=== PATIENT | female | born 1955 | race Caucasian/White ===

== ENCOUNTER → 2017-12-23 | Outpatient (CLI) | payer BC ==
--- NOTE | 2017-12-23 15:05 | WOMENS IMAGING REPORT ---
EXAM DESCRIPTION: BILAT SCREENING MAMMO W/CAD COMPLETED DATE/TIME: 12/23/2017 2:49 pm REASON FOR STUDY: ROUTINE SCREENING MAMMOGRAM Z12.31 Z12.31 ENCNTR SCREEN MAMMOGRAM FOR MALIGNANT N EOPLASM OF LEXI COMPARISON: 2013 TECHNIQUE: Standard craniocaudal and mediolateral oblique views of each breast recorded using [employer] Word[employer] l acquisition. LIMITATIONS: None. FINDINGS: No masses, calcifications or architectural distortion. No areas of suspicion. Read with the assistance of CAD. .[facility] - R2 Cenova Version 1.3 .[facility] - R2 Cenova Version 1.3 .[facility] - R2 Cenova Version 2.4 .[facility] - R2 Cenova Version 2.4 .[facility] - R2 Stull Hewer Version 9.2 IMPRESSION: NORMAL MAMMOGRAM. BIRADS 1. BREAST DENSITY: b. There are scattered areas of fibroglandular density. BIRAD: 1 NEGATIVE RECOMMENDATION: ROUTINE SCREENING Please continue yearly bilateral screening mammography/tomosynthesis in November 2018 COMMENT: The patient has been notified of the results by letter per SA requirements. Additional no tification policies are in place for contacting patient with suspicious or incomplete findings. Quality ID #225: The [employer] recommends an annual screening mammogram for women aged 40 years or over. This facility utilizes a reminder system to ensure that all patients receive reminder letters, and/or direct phone calls for appointments. This includes reminders for routine scr eening mammograms, diagnostic mammograms, or other Breast Imaging Interventions when appropriate. Th is patient will be placed in the appropriate reminder system. The [employer] (ACR) has developed recommendations for screening MRI of the breast s in certain patient populations, to be used in conjunction with mammography. Breast MRI surveillanc e may be appropriate for women with more than 20% lifetime risk of developing breast cancer as deter mined by genetic testing, significant family history of the disease, or history of mantle radiation f or Hodgkins Disease. ACR Practice Guidelines 2008. TECHNICAL DOCUMENTATION: FINDING NUMBER: (1) ASSESSMENT: (1) JOB ID: [id number] [employer]- All Rights Reserved Reading location - IP/workstation name: [email or web address]
== END ==
LOC: WI 14:11
PROVIDERS: ATTEND Physician Assistant
DX: Z12.31 Encounter for screening mammogram for malignant neoplasm of breast (principal)
CPT/HCPCS: 77067

== ENCOUNTER 2019-04-14 12:07 | Inpatient (IN) | payer SELFPAY ==
--- NOTE | 2019-04-14 13:09 | ER Document Report ---
ED Medical Screen (RME) - General Chief Complaint: Numbness Stated Complaint: NUMBNESS Time Seen by Provider: 04/14/19 12:58 Primary Care Provider: JULIANE JOHNSON PA-C [Primary Care Provider] - Follow up as needed TRAVEL OUTSIDE OF THE U.S. IN LAST 30 DAYS: No - HPI Notes: 04/14/19 13:03 Patient is a 64-year-old female no significant past medical history presents complaining of left arm and left leg tingling and weakness as well as bilateral face tingling that began between 8 and 830 this morning. Patient states that she is still able to eat and drink without difficulty. She is urinating normally. No fever, chest pain, shortness of breath, abdominal pain. Patient is outside the tpa window >4.5-5 hours. I have treated and performed a rapid initial assessment of this patient. A comprehensive ED assessment and evaluation of the patient, analysis of test results and completion of medical decision making process will be conducted by additional ED providers. PHYSICAL EXAMINATION: GENERAL: Well-appearing, well-nourished and in no acute distress. A&Ox4. Answers questions appropriately. Neuro: Face is symmetric, PERRLA, EOMI bilaterally. Pronator drift negative. [id number] within normal limits. There is subjective decrease in station left side of the body and bilateral face. Strength 4+/5 on the left side and 5+/5 on the right side. - Related Data Allergies/Adverse Reactions: codeine Allergy (Verified 04/14/19 12:56) Physical Exam - Vital signs Vitals: Temp Pulse Resp BP Pulse Ox 98.4 F 80 18 125/61 95 04/14/19 12:04/14/19 12:04/14/19 12:04/14/19 12:04/14/19 12:19 Course - Vital Signs Vital signs: Temp Pulse Resp BP Pulse Ox 98.4 F 80 18 125/61 95 04/14/19 12:04/14/19 12:04/14/19 12:04/14/19 12:04/14/19 12:19 Doctor's Discharge - Discharge Referrals: JULIANE JOHNSON PA-C [Primary Care Provider] - Follow up as needed
[2019-04-14 13:58] LABS: ABSOLUTE BASOPHILS # (AUTO) 0.1 10^3/uL (0.0-0.2); ABSOLUTE EOSINOPHILS # (AUTO) 0.2 10^3/uL (0.0-0.6); ABSOLUTE LYMPHOCYTES (AUTO) 2.8 10^3/uL (0.5-4.7); ABSOLUTE MONOCYTES (AUTO) 1.1 10^3/uL (0.1-1.4); ABSOLUTE NEUT (AUTO) 5.7 10^3/uL (1.7-8.2); BASOPHILS % (AUTO) 0.8 % (0-2); EOSINOPHILS % (AUTO) 1.6 % (0-6); HEMATOCRIT 44.4 % (36.0-47.0); LYMPHOCYTES % (AUTO) 28.3 % (13-45); MEAN CORPUSCULAR HEMOGLOBIN 31.7 pg (27.0-33.4); MEAN CORPUSCULAR HGB CONC 33.7 g/dL (32.0-36.0); MEAN CORPUSCULAR VOLUME 94 fl (80-97); MONOCYTES % (AUTO) 11.6 % (3-13); PLATELET COUNT 190 10^3/uL (150-450); RED BLOOD COUNT 4.73 10^6/uL (3.72-5.28); RED CELL DISTRIBUTION WIDTH 15.3 % (11.5-14.0); SEGMENTED NEUTROPHILS % (AUTO) 57.7 % (42-78); TOTAL CELLS COUNTED % (AUTO) 100 %; WHITE BLOOD COUNT 9.9 10^3/uL (4.0-10.5)
--- NOTE | 2019-04-14 14:08 | RADIOLOGY REPORT (SQ) ---
EXAM DESCRIPTION: CT HEAD WITHOUT COMPLETED DATE/TIME: 04/14/2019 1:51 pm REASON FOR STUDY: left arm/leg weakness/tingling, bilateral face COMPARISON: None. TECHNIQUE: Axial images acquired through the brain without intravenous contrast. Images reviewed wi th bone, brain and subdural windows. Additional sagittal and coronal reconstructions were generated. Images stored on PACS. All CT scanners at this facility use dose modulation, iterative reconstruction, and/or weight based d osing when appropriate to reduce radiation dose to as low as reasonably achievable (ALARA). [facility]: Dose Right [facility]: CareDose [facility]: Dose Right [facility]: Teradose 4D [facility]: OjoOido-Academics RADIATION DOSE: CT Rad equipment meets quality standard of care and radiation dose reduction techniq ues were employed. CTDIvol: 53.2 mGy. DLP: 964 mGy-cm. LIMITATIONS: None. FINDINGS: There is no acute intracranial hemorrhage, vascular territorial infarct, extra-axial fluid collection, mass effect or midline shift. There is no effacement of the cerebral sulci or basal sub arachnoid cisterns. The sanchez-white matter differentiation is preserved. The caliber the ventricles is concordant with the degree of sulcation. The orbits and globes are intact. The paranasal sinuses and the mastoid air cells are clear. There is no fracture of the calvarium. IMPRESSION: No acute intracranial abnormality. If there is persistent concern for an acute CVA then correlation with MRI is recommended. EVIDENCE OF ACUTE STROKE: NO. COMMENT: Quality ID # [id number]: Final reports with documentation of one or more dose reduction techniques (e.g., Automated exposure control, adjustment of the mA and/or kV according to patient size, use of iterative reconstruction technique) TECHNICAL DOCUMENTATION: JOB ID: [id number] 2010 [employer]- All Rights Reserved Reading location - IP/workstation name: [email or web address]
[2019-04-14 14:11] LABS: APPEARANCE,URINE CLEAR; BILIRUBIN,URINE NEGATIVE (NEGATIVE); COLOR,URINE YELLOW; GLUCOSE, URINE NEGATIVE (NEGATIVE); KETONES,URINE NEGATIVE (NEGATIVE); PROTEIN,URINE NEGATIVE (NEGATIVE); URINE SPECIFIC GRAVITY 1.014; UROBILINOGEN,URINE NEGATIVE mg/dL (<2.0)
[2019-04-14 14:16] LABS: INTERNATIONAL RATION (INR) 0.94; PROTHROMBIN TIME 12.6 SEC (11.4-15.4)
[2019-04-14 14:17] LABS: PARTIAL THROMBOPLASTIN TIME 30.1 SEC (23.5-35.8)
[2019-04-14 14:24] LABS: ALBUMIN 4.4 g/dL (3.5-5.0); ALKALINE PHOSPHATASE 81 U/L (38-126); ANION GAP 9 (5-19); ASPARTATE AMINO TRANSFERASE 18 U/L (14-36); BILIRUBIN,DIRECT 0.3 mg/dL (0.0-0.4); BILIRUBIN,TOTAL 0.4 mg/dL (0.2-1.3); BLOOD UREA NITROGEN 20 mg/dL (7-20); CALCIUM 9.3 mg/dL (8.4-10.2); CARBON DIOXIDE 28 mmol/L (22-30); CHLORIDE 102 mmol/L (98-107); GLUCOSE 75 mg/dL (75-110); POTASSIUM 4.6 mmol/L (3.6-5.0); TOTAL PROTEIN 7.8 g/dL (6.3-8.2)
--- NOTE | 2019-04-14 16:11 | ER Document Report ---
ED General - General Chief Complaint: Numbness Stated Complaint: NUMBNESS Time Seen by Provider: 04/14/19 12:58 Primary Care Provider: JULIANE JOHNSON PA-C [Primary Care Provider] - Follow up as needed TRAVEL OUTSIDE OF THE U.S. IN LAST 30 DAYS: No - HPI Notes: 64-year-old female with no prior history of stroke or TIA reports that she was well when she went to bed last night and when she awakened this morning around 8 AM she was aware of some tingling of both sides of her face and some mild weakness of her left upper and lower extremity. She is able to stand and walk but notices some slight dragging of her left leg. Patient has a past history of migraine. She denies any headache nausea or vomiting at this time. She denies any visual symptoms or any problems with swallowing or speaking. Patient is a non-smoker. She denies any known history of diabetes or hypertensi on. Family history is strongly positive for CVA. Patient sees a primary care provider in [place], [place] and has been treated for depression and anxiety. Her regular medications include Xanax 1 mg twice daily Paxil 30 mg at bedtime and Deseryl. No other regular medications. Allergic to codeine. Denies any history of drug use. Denies alcohol consumption. - Related Data Allergies/Adverse Reactions: codeine Allergy (Verified 04/14/19 12:56) Past Medical History - General Information source: Patient, Relative - Social History Smoking Status: Former Smoker Frequency of alcohol use: None Drug Abuse: None Lives with: Family Family History: CVA Patient has suicidal ideation: No Patient has homicidal ideation: No - Past Medical History Cardiac Medical History: Reports: None Neurological Medical History: Reports: Hx Migraine Endocrine Medical History: Reports: None Renal/ Medical History: Reports: Other - Postmenopausal Malignancy Medical History: Reports: None Musculoskeletal Medical History: Reports Hx Arthritis Psychiatric Medical History: Reports: Hx Anxiety, Hx Depression Past Surgical History: Reports: None Review of Systems - Review of Systems Notes: Constitutional: Negative for fever. HENT: Negative for sore throat. Eyes: Negative for visual changes. Cardiovascular: Negative for chest pain. Respiratory: Negative for shortness of breath. Gastrointestinal: Negative for abdominal pain, vomiting or diarrhea. Genitourinary: Light vaginal spotting last week. Negative for dysuria. Musculoskeletal: Negative for back pain. Skin: Negative for rash. Neurological: As per HPI. 10 point ROS negative except as marked above and in HPI. Physical Exam - Vital signs Vitals: Temp Pulse Resp BP Pulse Ox 98.4 F 80 18 125/61 95 04/14/19 12:19 04/14/19 12:19 04/14/19 12:19 04/14/19 12:19 04/14/19 12:19 - Notes Notes: GENERAL: Female patient approximately stated age appearing in no acute distress. SKIN: Good turgor no rashes. HEAD: Normocephalic atraumatic. EYES: PERRLA. EOMI. Conjunctivae and sclerae clear. EARS: CANALS AND TMS CLEAR. NOSE: CLEAR. MOUTH: Moist mucosa. Good dentition. No stridor or edema. No drooling. NECK: Supple. No masses or thyromegaly. No adenopathy. Carotids 2+ without bruits. No JVD. Throat: Clear. BACK: Symmetrical without tenderness. CHEST: Respirations unlabored. Breath sounds clear and symmetrical. HEART: Regular rhythm. No murmur gallop or rub. ABDOMEN: Soft nontender without masses, organomegaly or rebound. Bowel sounds normally active. No bruits. GENITALIA: Deferred. EXTREMITIES: Mild degenerative changes in phalangeal joints both hands. No edema. No calf tenderness. Cap refill less than 1.5 seconds. Dorsalis pedis and posterior tibial pulses 3+ and symmetrical. NEUROLOGICAL: GCS 15. Alert and oriented x3. Minimally unsteady gait with mild dragging of left lower extremity. Fluent speech. Cranial nerves II through XII intact. Mild diminished sensation over both sides of the face. Minimal motor drift left lower extremity with all motor testing elsewhere normal. Finger-nose testing normal. Normal tone. PSYCHIATRIC: Appropriate affect. Course - Re-evaluation Re-evalutation: 04/14/19 16:15 Clinically this patient may have had a small CVA. She is outside of the window for consideration of patient does not meet any exclusion criteria for TPA at this time. I have reviewed the risks and benefits of administration of TPA with the family at the bedside. We have reviewed the risks of intracranial bleed and the possible benefits of increased functional independence at 90 days with the use of TPA. At her deficit is very minimal. We will obtain an MRI of the brain at this time. 04/14/19 18:04 Patient remains hemodynamically stable. Symptoms and findings are unchanged at this point. MRI the brain showed a 6 mm infarct. The right thalamus. I discussed these findings with the patient. We have no local neurologist. I will consult with the on-call stroke attending at [facility] Dr. Mckeon. Images have been sent to [facility] and I am waiting for return call from the neurologist at this time. 04/14/19 18:49 Stroke automotive internet sales consultant [facility] has accepted the patient for transfer. We will administer oral aspirin and Plavix per his recommendation pending transfer. EMTALA form completed. 04/14/19 18:49 04/14/19 19:20 I received further communication from stroke neurology team at [facility]. They do not currently have a neuro bed available for this patient. Cubing Machine Tender feels th at she needs no specific neurology intervention at this time but will need a vascular work-up. He recommends local admission. Case was discussed with on- call hospitalist Dr. Austin Lima who has agreed to admit here. I discussed this with the patient and her family and they are agreeable. - Vital Signs Vital signs: Temp Pulse Resp BP Pulse Ox 98.4 F 80 18 125/61 95 04/14/19 12:19 04/14/19 12:19 04/14/19 12:19 04/14/19 12:19 04/14/19 12:19 - Laboratory Result Diagrams: 04/14/19 12:47 04/14/19 12:47 Laboratory results interpreted by me: 04/14/19 04/14/19 04/14/19 12:47 12:47 12:47 RDW 15.3 H Magnesium 2.4 H Urine Blood SMALL H Leukocyte Esterase Rfl TRACE H - Diagnostic Test Radiology reviewed: Reports reviewed Radiology results interpreted by me: 04/14/19 16:[address] head per radiologist. 04/14/19 18:04 MRI of the brain with 6 mm infarction right thalamus per radiologist. - EKG Interpretation by Me Additional EKG results interpreted by me: 04/14/19 16:14 12-lead EKG from 1336 hrs. is reviewed contemporaneously by me demonstrating normal sinus rhythm with rate of 62 normal axis of [address] no acute [address]-T wave changes or alteration of intervals. Discharge - Discharge Clinical Impression: Acute ischemic stroke Condition: Fair Disposition: [facility] Referrals: JULIANE JOHNSON PA-C [Primary Care Provider] - Follow up as needed
--- NOTE | 2019-04-14 17:18 | RADIOLOGY REPORT (SQ) ---
EXAM DESCRIPTION: MRI HEAD COMBO COMPLETED DATE/TIME: 04/14/2019 5:02 pm REASON FOR STUDY: Left side weakness >[address] normal COMPARISON: Earlier CT TECHNIQUE: Multiplanar imaging includes noncontrasted T1, T2, FLAIR, and Diffusion with ADC map seq uences. Contrast enhanced T1 images. Images stored on PACS. CONTRAST TYPE AND DOSE: 10 mL Dotarem. RENAL FUNCTION: GFR > 60. LIMITATIONS: None. FINDINGS: ANATOMY: No anomalies. Normal vascular flow voids. Pituitary fossa normal. CSF SPACES: Normal size and contour. No hemorrhage. CEREBRUM: A few high-signal intensity lesions scattered throughout the white matter on FLAIR imaging with distribution suggesting chronic microvascular ischemic change. Sulci and gyri normal in size and contour. No evidence of hemorrhage, mass or extraaxial fluid collection. No enhancing lesions. POSTERIOR FOSSA: No signal alteration. No hemorrhage. No edema, masses or mass effect. Internal audit ory canals, cerebello-pontine angles, mastoids normal. ORBITS: No masses. Globes normal. PARANASAL SINUSES: No fluid levels. Mucosa normal. OTHER: No other significant finding. DIFFUSION: Positive for acute or sub-acute infarction in a 6 mm focus in the lateral aspect of the ri ght thalamus. IMPRESSION: Positive for acute or sub-acute infarction in a 6 mm focus in the lateral aspect of the right thalamus. NO ENHANCING LESIONS. EVIDENCE OF ACUTE STROKE: YES. RIGHT SUPERVISOR LIVESTOCK YARD. COMMENT: The findings were sent to the Radiology Results Communication Center at 17:11 on 04/14/2019 to be communicated to a licensed caregiver. TECHNICAL DOCUMENTATION: JOB ID: [id number] 2010 [employer]- All Rights Reserved Reading location - IP/workstation name: [employer]
[2019-04-14] MEDS ORDERED: ASPIRIN 81 MG TABLET, CHEWABLE PO ONE (18:48)
[2019-04-14] MEDS ORDERED: CLOPIDOGREL BISULFATE 300 MG TABLET PO ONE (18:48)
[2019-04-14] MEDS ORDERED: DOCUSATE SODIUM 100 MG CAPSULE PO PRN (19:34)
[2019-04-14] MEDS ORDERED: ACETAMINOPHEN 325 MG TABLET PO PRN (19:34)
--- NOTE | 2019-04-14 20:06 | EKG REPORT ---
SEVERITY:- NORMAL ECG - SINUS RHYTHM : Confirmed by: Nelson Del Rosario MD 14-Apr-2019 20:05:47
[2019-04-14] MEDS: HEPARIN SOD (PORCINE) 5,000 UNIT/ML 1 ML VIAL SUBCUT SCH (22:54)
[2019-04-14] MEDS: ATORVASTATIN CALCIUM 80 MG TABLET PO SCH (22:54)
[2019-04-15] MEDS ORDERED: ALPRAZOLAM 0.5 MG TABLET PO ONE (01:15)
[2019-04-15] MEDS ORDERED: TRAZODONE HCL 50 MG TABLET PO ONE (02:00)
--- NOTE | 2019-04-15 04:00 | PDOC H&P ---
History of Present Illness Admission Date/PCP: 04/14/19 19:55 JULIANE JOHNSON PA-C Patient complains of: Facial numbness and tingling, left hand and left leg weakness History of Present Illness: LISA WOODS is a 64 year old female with a past medical history of anxiety, depression, hypertension and dyslipidemia presents with 8 hours of facial numbness and left-sided weakness. She denies previous episode, palpitations, recent change in medication regiment. In the emergency department her symptoms remain but are somewhat improved. MRI reveals 6 mm right thalamic acute infarct. She started on aspirin, Plavix and referred to the hospitalist for admission. Patient admits to approximately 1 year of left lower quadrant pain and vaginal bleeding without evaluation. Past Medical History Cardiac Medical History: Reports: None Neurological Medical History: Reports: Migraine Endocrine Medical History: Reports: None Renal/ Medical History: Reports: Other - Postmenopausal Malignancy Medical History: Reports: None Musculoskeltal Medical History: Reports: Arthritis Psychiatric Medical History: Reports: Depression, General Anxiety Disorder Past Surgical History Past Surgical History: Reports: None Social History Information Source: Patient Lives with: Family Smoking Status: Former Smoker Cigarettes Packs Per Day: 1 Electronic Cigarette use?: No Number of Years Smokin Last Time Smoked: 1989 Frequency of Alcohol Use: Rare Hx Recreational Drug Use: No Drugs: None Hx Prescription Drug Abuse: No - Advance Directive Resuscitation Status: Full Code Family History Family History: CVA Parental Family History Reviewed: Yes Children Family History Reviewed: Yes Sibling(s) Family History Reviewed.: Yes Medication/Allergy Home Medications: Alprazolam 1 mg PO Q12 04/14/19 Calcium Carbonate [Caltrate 600 mg Tablet] 600 mg PO DAILY 04/14/19 Cholecalciferol (Vitamin D3) [Vitamin D3 1000 Unit Tablet] 1,000 unit PO DAILY 04/14/19 Garlic [Odor Free Garlic] 1 each PO DAILY 04/14/19 Multivit-Min/Iron/Folic/Lutein [Centrum Silver Women Tablet] 1 each PO DAILY 04/14/19 [place]-3/Dha/Epa/Fish Oil [Fish Oil 1,000 mg Softgel] 1,000 mg PO DAILY 04/14/19 Paroxetine HCl [Paxil] 30 mg PO DAILY 04/14/19 Trazodone HCl [Desyrel 50 mg Tablet] 50 mg PO QHS 04/14/19 Allergies/Adverse Reactions: codeine Allergy (Verified 04/14/19 12:56) Review of Systems Constitutional: PRESENT: as per HPI, other - Heat intolerance. ABSENT: chills, fever(s), headache(s), weight gain, weight loss Eyes: ABSENT: visual disturbances Ears: ABSENT: hearing changes Cardiovascular: ABSENT: chest pain, dyspnea on exertion, edema, orthropnea, palpitations Respiratory: ABSENT: cough, hemoptysis Gastrointestinal: ABSENT: abdominal pain, constipation, diarrhea, hematemesis, hematochezia, nausea, vomiting Genitourinary: PRESENT: other - Vaginal bleeding. ABSENT: dysuria, hematuria Musculoskeletal: ABSENT: joint swelling Integumentary: ABSENT: rash, wounds Neurological: ABSENT: abnormal gait, abnormal speech, confusion, dizziness, focal weakness, syncope Psychiatric: ABSENT: anxiety, depression, homidical ideation, suicidal ideation Endocrine: PRESENT: heat intolerance. ABSENT: cold intolerance, polydipsia, polyuria Hematologic/Lymphatic: ABSENT: easy bleeding, easy bruising Physical Exam Vital Signs: Temp Pulse Resp BP Pulse Ox 98.4 F 60 17 133/53 H 95 04/15/19 00:08 04/15/19 02:00 04/15/19 00:08 04/15/19 00:08 04/15/19 00:08 Intake & Output 04/13/19 04/14/19 04/15/19 11:59 11:59 11:59 Output Total 150 Balance -150 Weight 68 kg General appearance: PRESENT: cooperative, mild distress, well-developed, well- nourished Head exam: PRESENT: atraumatic, normocephalic Eye exam: PRESENT: conjunctiva pink, EOMI, PERRLA. ABSENT: scleral icterus Ear exam: PRESENT: normal external ear exam Mouth exam: PRESENT: moist, tongue midline Neck exam: ABSENT: carotid bruit, JVD, lymphadenopathy, thyromegaly Respiratory exam: PRESENT: clear to auscultation chavez. ABSENT: rales, rhonchi, wheezes Cardiovascular exam: PRESENT: RRR. ABSENT: diastolic murmur, rubs, systolic murmur Pulses: PRESENT: normal dorsalis pedis pul Vascular exam: PRESENT: normal capillary refill GI/Abdominal exam: PRESENT: normal bowel sounds, soft, tenderness - Left lower quadrant versus pelvic, tenderness. ABSENT: distended, guarding, mass, organolmegaly, rebound Rectal exam: PRESENT: deferred Extremities exam: PRESENT: full ROM. ABSENT: calf tenderness, clubbing, pedal edema Musculoskeletal exam: PRESENT: full ROM, other - 4+ out of 5 strength in the left upper and lower extremity.. ABSENT: tenderness Neurological exam: PRESENT: alert, awake, oriented to person, oriented to place, oriented to time, oriented to situation, CN II-XII grossly intact. ABSENT: motor sensory deficit Psychiatric exam: PRESENT: appropriate affect, normal mood. ABSENT: homicidal ideation, suicidal ideation Skin exam: PRESENT: dry, intact, warm. ABSENT: cyanosis, rash Results Laboratory Results: 04/14/19 12:47 04/14/19 12:47 04/14/19 04/14/19 04/14/19 12:47 12:47 12:47 WBC 9.9 RBC 4.73 Hgb 15.0 Hct 44.4 MCV 94 MCH 31.7 MCHC 33.7 RDW 15.3 H Plt Count 190 Seg Neutrophils % 57.7 Sodium 139.0 Potassium 4.6 Chloride 102 Carbon Dioxide 28 Anion Gap 9 BUN 20 Creatinine 0.78 Est GFR ( Amer) > 60 Glucose 75 Calcium 9.3 Magnesium 2.4 H Total Bilirubin 0.4 AST 18 Alkaline Phosphatase 81 Total Protein 7.8 Albumin 4.4 TSH 1.07 Urine Color Urine Appearance Urine pH Ur Specific [place] Urine Protein Urine Glucose (UA) Urine Ketones Urine Blood Urine RBC (Auto) 04/14/19 04/15/19 12:47 00:52 WBC RBC Hgb Hct MCV MCH MCHC RDW Plt Count Seg Neutrophils % Sodium Potassium Chloride Carbon Dioxide Anion Gap BUN Creatinine Est GFR ( Amer) Glucose Calcium Magnesium Total Bilirubin AST Alkaline Phosphatase Total Protein Albumin TSH 2.64 Urine Color YELLOW Urine Appearance CLEAR Urine pH 6.0 Ur Specific [place] 1.014 Urine Protein NEGATIVE Urine Glucose (UA) NEGATIVE Urine Ketones NEGATIVE Urine Blood SMALL H Urine RBC (Auto) 5 Impressions: Head CT 04/14/19 13:02 IMPRESSION: No acute intracranial abnormality. If there is persistent concern for an acute CVA then correlation with MRI is recommended. EVIDENCE OF ACUTE STROKE: NO. Head MRI 04/14/19 16:00 IMPRESSION: Positive for acute or sub-acute infarction in a 6 mm focus in the lateral aspect of the right thalamus. NO ENHANCING LESIONS. EVIDENCE OF ACUTE STROKE: YES. RIGHT BINGO CALLER. Assessment and Plan - Diagnosis (1) Acute ischemic stroke Is this a current diagnosis for this admission?: Yes Plan: CVA care set deployed, aspirin, Plavix, Lipitor, permissive hypertension, evaluate risks of CVA as below, physical and Occupational Therapy consulted. (2) Hypertension Is this a current diagnosis for this admission?: Yes Plan: 48 hours of permissive hypertension (3) Dyslipidemia Is this a current diagnosis for this admission?: Yes Plan: Empiric Lipitor initiated, follow-up lipid profile (4) Heat intolerance Is this a current diagnosis for this admission?: Yes Plan: Follow-up TSH and pelvic CT (5) Vaginal bleeding Is this a current diagnosis for this admission?: Yes Plan: Follow-up pelvic CT, consider DISTRICT SUPERVISOR consult (6) Left lower quadrant pain Is this a current diagnosis for this admission?: Yes Plan: Denies colonoscopy, investigating hypercoagulable state of malignancy. - Time Time Spent with patient: 25-34 minutes - Inpatient Certification Medical Necessity: Need Close Monitoring Due to Risk of Patient Decompensation
--- NOTE | 2019-04-15 04:41 | RADIOLOGY REPORT (SQ) ---
EXAM DESCRIPTION: CT ABDOMEN PELVIS WITH IV CONTRAST COMPLETED DATE/TME: 04/15/2019 00:00 CLINICAL HISTORY: 64 years, Female, weight loss, LLQ pain and dysfnx uterine bleed COMPARISON: None. TECHNIQUE: Images stored on PACS. All CT scanners at this facility use dose modulation, iterative reconstruction, and/or weight based dosing when appropriate to reduce radiation dose to as low as reasonably achievable (ALARA). [facility]: Dose Right [facility]: CareDose [facility]: Dose Right [facility]: Teradose 4D [facility]: [employer] LIMITATIONS: None. FINDINGS: Lung bases are clear. The heart is top normal. No pleural or pericardial fluid. The liver is mildly fatty infiltrated. It is homogeneous. The gallbladder surgically absent. The pancreas appears normal. The spleen adrenals and kidneys are unremarkable. Extrarenal pelvis of both kidneys. The bowel is nonobstructed. No focal inflammatory change. Diverticulosis of the colon distally without acute diverticulitis. The appendix is normal. No free air. No free fluid. Pelvic contents are unremarkable. The visualized bones are unremarkable. Age-appropriate osteoarthritis IMPRESSION: No acute intra-abdominal process is identified. Diverticulosis without acute diverticulitis. The cause of the patient's left lower quadrant pain and dysfunctional uterine bleeding is not identified on this examination. TECHNICAL DOCUMENTATION: Quality ID # 436: Final reports with documentation of one or more dose reduction techniques (e.g., Automated exposure control, adjustment of the mA and/or kV according to patient size, use of iterative reconstruction technique) copyright 2011 [employer]- All Rights Reserved
[2019-04-15] MEDS: HEPARIN SOD (PORCINE) 5,000 UNIT/ML 1 ML VIAL SUBCUT SCH ×3 (05:54→21:34)
[2019-04-15 06:27] LABS: TRIGLYCERIDES 85 mg/dL (<150)
[2019-04-15 06:38] LABS: DIRECT LDL 148 mg/dL (<100)
--- NOTE | 2019-04-15 08:07 | RADIOLOGY REPORT (SQ) ---
EXAM DESCRIPTION: CAROTID DOPPLER COMPLETED DATE/TIME: 04/14/2019 9:23 pm REASON FOR STUDY: R thal cva c left leg weak COMPARISON: None. TECHNIQUE: Grayscale ultrasound, Doppler velocity and spectra, and color Doppler images acquired of the extra-cranial carotid and vertebral arteries. Images stored on PACS. LIMITATIONS: None. FINDINGS: RIGHT CAROTID CCA Velocities: Within normal limits. ICA Velocities Within normal limits. Proximal ICA/CCA peak systolic ratio 1.2. Mild soft plaque. No significant luminal compromise. LEFT CAROTID CCA Velocities: Within normal limits. ICA Velocities Within normal limits. Proximal ICA/CCA peak systolic ratio 1.1. Mild soft plaque. No significant luminal compromise. VERTEBRAL ARTERIES: Antegrade flow. Normal waveforms. SUBCLAVIAN ARTERIES: No finding. OTHER: No other significant finding. IMPRESSION: NO HEMODYNAMICALLY SIGNIFICANT STENOSIS. COMMENT: Quality ID #195: Velocity criteria are extrapolated from the diameter data as defined by t he Society of Radiologists in Ultrasound Consensus Conference. Radiology 2003: 229; 340-346. TECHNICAL DOCUMENTATION: JOB ID: [id number] 2010 [employer]- All Rights Reserved Reading location - IP/workstation name: [email or web address]
[2019-04-15] MEDS: ALPRAZOLAM 0.5 MG TABLET PO SCH ×2 (09:19→21:33)
[2019-04-15] MEDS: ASPIRIN 81 MG TABLET, ENT COATED PO SCH (09:19)
[2019-04-15] MEDS ORDERED: PAROXETINE HCL 20 MG TABLET PO SCH ×2 (10:00→22:00)
--- NOTE | 2019-04-15 15:47 | PDOC PROGRESS REPORT ---
Subjective Progress Note for:: 04/15/19 Subjective:: Patient states that she still has some weakness in her left side involving her left arm and left leg and a blue bit of tingling in her left face but states that the symptoms are much improved and the weakness is better. Denies history of hypertension or atrial fibrillation. States that her symptoms started around 8:00 yesterday morning. Reason For Visit: CVA Physical Exam Vital Signs: Temp Pulse Resp BP Pulse Ox 98.6 F 69 18 124/78 98 04/15/19 11:27 04/15/19 11:27 04/15/19 11:27 04/15/19 11:27 04/15/19 11:27 Intake & Output 04/14/19 04/15/19 04/16/19 06:59 06:59 06:59 Intake Total 240 Output Total 150 Balance -150 240 Weight 63.8 kg General appearance: PRESENT: no acute distress, cooperative Head exam: PRESENT: normocephalic Eye exam: PRESENT: EOMI, other - Left pupil is more enlarged compared to right pupil slightly. ABSENT: nystagmus Mouth exam: PRESENT: neck supple Neck exam: ABSENT: JVD Respiratory exam: PRESENT: clear to auscultation chavez Cardiovascular exam: PRESENT: RRR, +S1, +S2. ABSENT: tachycardia GI/Abdominal exam: PRESENT: soft. ABSENT: rebound, rigid, tenderness Neurological exam: PRESENT: alert, awake, oriented to person, oriented to place, oriented to time, oriented to situation, motor sensory deficit - 4/5 in left upper and lower extremities. 5/5 in right side. Mild left arm and left leg drift but does not touch bed. Sensation to light touch and pain intact in all extremities. No evidence of extinction, other - Cranial nerves are normal with the exception of mild left-sided facial droop and anisocoria with left pupil larger than the right. ABSENT: altered, ataxia - No evidence of ataxia on efzlix-jlme-gfwphj testing nor on rapid alternating hand movements. Fcsl-oh-somo testing is limited due to left-sided weakness, aphasic Psychiatric exam: ABSENT: agitated, anxious Focused psych exam: ABSENT: pressured speech Results Laboratory Results: 04/14/19 12:47 04/14/19 12:47 04/15/19 04/15/19 00:52 05:57 Triglycerides 85 Cholesterol 218.80 H LDL Cholesterol Direct 148 H VLDL Cholesterol 17.0 HDL Cholesterol 48 TSH 2.64 Impressions: Head CT 04/14/19 13:02 IMPRESSION: No acute intracranial abnormality. If there is persistent concern for an acute CVA then correlation with MRI is recommended. EVIDENCE OF ACUTE STROKE: NO. Head MRI 04/14/19 16:00 IMPRESSION: Positive for acute or sub-acute infarction in a 6 mm focus in the lateral aspect of the right thalamus. NO ENHANCING LESIONS. EVIDENCE OF ACUTE STROKE: YES. RIGHT DIRECTOR CLOUD TRANSFORMATION. Carotid Doppler Study 04/14/19 19:34 IMPRESSION: NO HEMODYNAMICALLY SIGNIFICANT STENOSIS. Abdomen/Pelvis CT 04/15/19 00:00 IMPRESSION: No acute intra-abdominal process is identified. Diverticulosis without acute diverticulitis. The cause of the patient's left lower quadrant pain and dysfunctional uterine bleeding is not identified on this examination. TECHNICAL DOCUMENTATION: Quality ID # 436: Final reports with documentation of one or more dose reduction techniques (e.g., Automated exposure control, adjustment of the mA and/or kV according to patient size, use of iterative reconstruction technique) copyright 2011 [employer]- All Rights Reserved Assessment and Plan - Diagnosis (1) Acute ischemic stroke Is this a current diagnosis for this admission?: Yes Plan: NIH S score of 3-4 today on my assessment. Patient is over 24 hours in stroke and as such bedrest and permissive hypertension can be discontinued at this point. Aspirin and atorvastatin Telemetry reviewed by me and no evidence of A. fib or any other arrhythmias Carotid ultrasound showing no significant stenosis MRI confirms 6 mm right thalamic stroke which is likely responsible for left- sided weakness and her mild left facial droop and anisocoria Continue physical therapy Discharge planning consulted for acute rehab Patient has passed bedside swallow evaluation by nursing and is currently on amiodarone. (2) Dyslipidemia Is this a current diagnosis for this admission?: Yes Plan: Lipitor (3) Hypertension Is this a current diagnosis for this admission?: Yes Plan: Patient denies having hypertension at this time. I will monitor patient's blood pressures start patient on antihypertensive if patient blood pressure still elevated (4) Vaginal bleeding Is this a current diagnosis for this admission?: Yes Plan: Patient has been experiencing some vaginal bleeding. Abdominal pelvis CT scan was negative for any findings. Check pelvic ultrasound Patient will ultimately need endometrial biopsy which will be done in the outpatient setting. - Time Time Spent with patient: 15-24 minutes
--- NOTE | 2019-04-15 18:27 | RADIOLOGY REPORT (SQ) ---
EXAM DESCRIPTION: U/S NON OB PEL TV W/DOPPLER; U/S NON-OB PELVIS W/O DOP COMPLETED DATE/TIME: 04/15/2019 5:58 pm REASON FOR STUDY: vaginal bleeding. postmenopausal COMPARISON: None. TECHNIQUE: Dynamic and static grayscale images acquired of the pelvis via transabdominal and transva ginal approach and recorded on PACS. Additional selected color Doppler and spectral images recorded. LIMITATIONS: None. FINDINGS: UTERUS: Contour normal. No mass. ENDOMETRIAL STRIPE: No focal or generalized thickening. No masses. CERVIX: No nabothian cysts. RIGHT OVARY AND DOPPLER: Ovary not visualized. LEFT OVARY AND DOPPLER: Ovary not visualized. FREE FLUID: None noted. OTHER: No other significant finding. MEASUREMENTS: UTERUS: 2.5 x 3.4 x 3.7 cm. ENDOMETRIAL STRIPE: 9 mm. RIGHT OVARY: Not visualized. LEFT OVARY: Not visualized. IMPRESSION: LIMITED STUDY. OVARIES NOT VISUALIZED. THICKENING OF THE ENDOMETRIUM. OTHERWISE NO AB NORMAL FINDINGS. TECHNICAL DOCUMENTATION: JOB ID: [id number] 2010 [employer]- All Rights Reserved Reading location - IP/workstation name: [email or web address]
--- NOTE | 2019-04-15 18:27 | RADIOLOGY REPORT (SQ) ---
EXAM DESCRIPTION: U/S NON OB PEL TV W/DOPPLER; U/S NON-OB PELVIS W/O DOP COMPLETED DATE/TIME: 04/15/2019 5:58 pm REASON FOR STUDY: vaginal bleeding. postmenopausal COMPARISON: None. TECHNIQUE: Dynamic and static grayscale images acquired of the pelvis via transabdominal and transva ginal approach and recorded on PACS. Additional selected color Doppler and spectral images recorded. LIMITATIONS: None. FINDINGS: UTERUS: Contour normal. No mass. ENDOMETRIAL STRIPE: No focal or generalized thickening. No masses. CERVIX: No nabothian cysts. RIGHT OVARY AND DOPPLER: Ovary not visualized. LEFT OVARY AND DOPPLER: Ovary not visualized. FREE FLUID: None noted. OTHER: No other significant finding. MEASUREMENTS: UTERUS: 2.5 x 3.4 x 3.7 cm. ENDOMETRIAL STRIPE: 9 mm. RIGHT OVARY: Not visualized. LEFT OVARY: Not visualized. IMPRESSION: LIMITED STUDY. OVARIES NOT VISUALIZED. THICKENING OF THE ENDOMETRIUM. OTHERWISE NO AB NORMAL FINDINGS. TECHNICAL DOCUMENTATION: JOB ID: [id number] 2010 [employer]- All Rights Reserved Reading location - IP/workstation name: [email or web address]
[2019-04-15] MEDS: ATORVASTATIN CALCIUM 80 MG TABLET PO SCH (21:33)
[2019-04-15] MEDS ORDERED: TRAZODONE HCL 50 MG TABLET PO SCH (22:00)
[2019-04-16] MEDS: HEPARIN SOD (PORCINE) 5,000 UNIT/ML 1 ML VIAL SUBCUT SCH (06:52)
[2019-04-16] MEDS: ASPIRIN 81 MG TABLET, ENT COATED PO SCH (09:49)
[2019-04-16] MEDS: ALPRAZOLAM 0.5 MG TABLET PO SCH (09:49)
[2019-04-16] MEDS ORDERED: CLOPIDOGREL BISULFATE 75 MG TABLET PO SCH (10:00)
[2019-04-16] MEDS ORDERED: CHOLECALCIFEROL (D3) 1,000 UNIT (25 MCG) TABLET PO SCH (10:00)
--- NOTE | 2019-04-16 10:10 | PDOC DISCHARGE SUMMARY ---
Impression - Admit/DC Date/PCP Admission Date/Primary Care Provider: 04/14/19 19:55 JULIANE JOHNSON PA-C Discharge Date: 04/16/19 - Discharge Diagnosis (1) Acute ischemic stroke Is this a current diagnosis for this admission?: Yes (2) Dyslipidemia Is this a current diagnosis for this admission?: Yes (3) Hypertension Is this a current diagnosis for this admission?: Yes (4) Vaginal bleeding Is this a current diagnosis for this admission?: Yes (5) Thickened endometrium Is this a current diagnosis for this admission?: Yes - Additional Information Resuscitation Status: Full Code Discharge Diet: Other (Comments) - Low-cholesterol diet, low-fat diet Discharge Activity: Activity As Tolerated Referrals: JULIANE JOHNSON PA-C [Primary Care Provider] - (Please make follow-up appointment within 1 week of discharge) Prescriptions: Aspirin [Ecotrin 81 mg EC Tablet] 81 mg PO DAILY #30 tabec Atorvastatin Calcium [Lipitor 80 mg Tablet] 80 mg PO QHS #30 tablet Clopidogrel Bisulfate [Plavix 75 mg Tablet] 75 mg PO DAILY 21 Days #21 tablet Home Medications: Alprazolam 1 mg PO Q12 04/14/19 Calcium Carbonate [Caltrate 600 mg Tablet] 600 mg PO DAILY 04/14/19 Cholecalciferol (Vitamin D3) [Vitamin D3 1000 Unit Tablet] 1,000 unit PO DAILY 04/14/19 Garlic [Odor Free Garlic] 1 each PO DAILY 04/14/19 Multivit-Min/Iron/Folic/Lutein [Centrum Silver Women Tablet] 1 each PO DAILY 04/14/19 [place]-3/Dha/Epa/Fish Oil [Fish Oil 1,000 mg Softgel] 1,000 mg PO DAILY 04/14/19 Paroxetine HCl [Paxil] 30 mg PO DAILY 04/14/19 Trazodone HCl [Desyrel 50 mg Tablet] 50 mg PO QHS 04/14/19 Aspirin [Ecotrin 81 mg EC Tablet] 81 mg PO DAILY #30 tabec 04/16/19 Atorvastatin Calcium [Lipitor 80 mg Tablet] 80 mg PO QHS #30 tablet 04/16/19 Clopidogrel Bisulfate [Plavix 75 mg Tablet] 75 mg PO DAILY 21 Days #21 tablet 04/16/19 History of Present Illiness History of Present Illness: LISA WOODS is a 64 year old female with a past medical history of anxiety, depression, hypertension and dyslipidemia presents with 8 hours of facial numbness and left-sided weakness. She denies previous episode, palpitations, recent change in medication regiment. In the emergency department her symptoms remain but are somewhat improved. MRI reveals 6 mm right thalamic acute infarct. She started on aspirin, Plavix and referred to the hospitalist for admission. Patient admits to approximately 1 year of left lower quadrant pain and vaginal bleeding without evaluation. Hospital Course Hospital Course: Patient was admitted with left-sided weakness, mild left facial droop and was found to have a stroke. Head CT showed no evidence of a bleed. Patient was outside the TPA window and as such did not receive TPA. Brain MRI confirmed ischemic stroke involving 6 mm of her right thalamus which is likely responsible for her symptoms. Patient underwent permissive hypertension. Lipid panel showed dyslipidemia. Carotid ultrasound was negative for any significant stenosis. Patient's underwent early physical therapy and Occupational Therapy. Patient's left-sided weakness notably improved but still present at the time of discharge. Patient has been able to ambulate without much difficulty and is regaining her strength significantly. Patient was able to pass the swallow evaluation by nursing at bedside and has tolerated her diet without any difficulty swallowing. As patient is very functional, patient is ready for discharge home and home health will be set up for physical and Occupational Therapy to come in and work with patient frequently to help her regain her strength. Patient has been placed on daily aspirin, Plavix for the next 21 days only, daily atorvastatin high intensity. Telemetry for 48 hours showed no occult arrhythmias. Patient has been given instructions to have an echocardiogram done with her primary care provider as echocardiogram was not able to be performed given the weekends and public holiday on Wednesday. Of note during this admission, patient also complained of vaginal bleeding. Given her postmenopausal vaginal bleeding, transvaginal/pelvic ultrasound was done revealing thickened endometrium. Patient has been given strict instructions to follow-up with her primary care provider and her dental receptionist to ensure that she gets an endometrial biopsy to further evaluate this to rule out malignancy. Physical Exam Vital Signs: Temp Pulse Resp BP Pulse Ox 97.9 F 63 17 117/56 L 94 04/16/19 07:39 04/16/19 07:39 04/16/19 07:39 04/16/19 07:39 04/16/19 07:39 Intake & Output 04/15/19 04/16/1920 06:59 06:59 06:59 Intake Total 720 Output Total 150 Balance -150 720 Weight 63.8 kg 66.2 kg General appearance: PRESENT: no acute distress, cooperative Neck exam: ABSENT: JVD Neurological exam: PRESENT: alert, awake, oriented to person, oriented to place, oriented to time, oriented to situation, motor sensory deficit - 4/5 strength in left upper and lower extremity but improved from yesterday. 5/5 strength in right side. Results Laboratory Results: WBC 9.9 10^3/uL (4.0-10.5) 04/14/19 12:47 RBC 4.73 10^6/uL (3.72-5.28) 04/14/19 12:47 Hgb 15.0 g/dL (12.0-15.5) 04/14/19 12:47 Hct 44.4 % (36.0-47.0) 04/14/19 12:47 MCV 94 fl (80-97) 04/14/19 12:47 MCH 31.7 pg (27.0-33.4) 04/14/19 12:47 MCHC 33.7 g/dL (32.0-36.0) 04/14/19 12:47 RDW 15.3 % (11.5-14.0) H 04/14/19 12:47 Plt Count 190 10^3/uL (150-450) 04/14/19 12:47 Lymph % (Auto) 28.3 % (13-45) 04/14/19 12:47 [place] % (Auto) 11.6 % (3-13) 04/14/19 12:47 Eos % (Auto) 1.6 % (0-6) 04/14/19 12:47 Baso % (Auto) 0.8 % (0-2) 04/14/19 12:47 Absolute Neuts (auto) 5.7 10^3/uL (1.7-8.2) 04/14/19 12:47 Absolute Lymphs (auto) 2.8 10^3/uL (0.5-4.7) 04/14/19 12:47 Absolute Monos (auto) 1.1 10^3/uL (0.1-1.4) 04/14/19 12:47 Absolute Eos (auto) 0.2 10^3/uL (0.0-0.6) 04/14/19 12:47 Absolute Basos (auto) 0.1 10^3/uL (0.0-0.2) 04/14/19 12:47 Seg Neutrophils % 57.7 % (42-78) 04/14/19 12:47 PT 12.6 SEC (11.4-15.4) 04/14/19 12:47 INR 0.94 04/14/19 12:47 APTT 30.1 SEC (23.5-35.8) 04/14/19 12:47 Sodium 139.0 mmol/L (137-145) 04/14/19 12:47 Potassium 4.6 mmol/L (3.6-5.0) 04/14/19 12:47 Chloride 102 mmol/L (98-107) 04/14/19 12:47 Carbon Dioxide 28 mmol/L (22-30) 04/14/19 12:47 Anion Gap 9 (5-19) 04/14/19 12:47 BUN 20 mg/dL (7-20) 04/14/19 12:47 Creatinine 0.78 mg/dL (0.52-1.25) 04/14/19 12:47 Est GFR ( Amer) > 60 (>60) 04/14/19 12:47 Est GFR (MDRD) Non-Af > 60 (>60) 04/14/19 12:47 Glucose 75 mg/dL (75-110) 04/14/19 12:47 Calcium 9.3 mg/dL (8.4-10.2) 04/14/19 12:47 Magnesium 2.4 mg/dL (1.6-2.3) H 04/14/19 12:47 Total Bilirubin 0.4 mg/dL (0.2-1.3) 04/14/19 12:47 Direct Bilirubin 0.3 mg/dL (0.0-0.4) 04/14/19 12:47 Neonat Total Bilirubin Not Reportable 04/14/19 12:47 Neonat Direct Bilirubin Not Reportable 04/14/19 12:47 Neonat Indirect Bili Not Reportable 04/14/19 12:47 AST 18 U/L (14-36) 04/14/19 12:47 ALT 10 U/L (<35) 04/14/19 12:47 Alkaline Phosphatase 81 U/L (38-126) 04/14/19 12:47 Total Protein 7.8 g/dL (6.3-8.2) 04/14/19 12:47 Albumin 4.4 g/dL (3.5-5.0) 04/14/19 12:47 Triglycerides 85 mg/dL (<150) 04/15/19 05:57 Cholesterol 218.80 mg/dL (0-200) H 04/15/19 05:57 LDL Cholesterol Direct 148 mg/dL (<100) H 04/15/19 05:57 VLDL Cholesterol 17.0 mg/dL (10-31) 04/15/19 05:57 HDL Cholesterol 48 mg/dL (>40) 04/15/19 05:57 TSH 2.64 uIU/mL (0.47-4.68) 04/15/19 00:52 Urine Color YELLOW 04/14/19 12:47 Urine Appearance CLEAR 04/14/19 12:47 Urine pH 6.0 (5.0-9.0) 04/14/19 12:47 Ur Specific [place] 1.014 04/14/19 12:47 Urine Protein NEGATIVE mg/dL (NEGATIVE) 04/14/19 12:47 Urine Glucose (UA) NEGATIVE mg/dL (NEGATIVE) 04/14/19 12:47 Urine Ketones NEGATIVE mg/dL (NEGATIVE) 04/14/19 12:47 Urine Blood SMALL (NEGATIVE) H 04/14/19 12:47 Urine Nitrite (Reflex) NEGATIVE (NEGATIVE) 04/14/19 12:47 Urine Bilirubin NEGATIVE (NEGATIVE) 04/14/19 12:47 Urine Urobilinogen NEGATIVE mg/dL (<2.0) 04/14/19 12:47 Leukocyte Esterase Rfl TRACE (NEGATIVE) H 04/14/19 12:47 Urine RBC (Auto) 5 /HPF 04/14/19 12:47 U Hyaline Cast (Auto) 1 /LPF 04/14/19 12:47 Urine WBC (Reflex) 10 /HPF 04/14/19 12:47 Squamous Epi Cells Auto 6 /HPF 04/14/19 12:47 Urine Mucus (Auto) OCC /LPF 04/14/19 12:47 Urine Ascorbic Acid NEGATIVE (NEGATIVE) 04/14/19 12:47 Impressions: Head CT 04/14/19 13:02 IMPRESSION: No acute intracranial abnormality. If there is persistent concern for an acute CVA then correlation with MRI is recommended. EVIDENCE OF ACUTE STROKE: NO. Head MRI 04/14/19 16:00 IMPRESSION: Positive for acute or sub-acute infarction in a 6 mm focus in the lateral aspect of the right thalamus. NO ENHANCING LESIONS. EVIDENCE OF ACUTE STROKE: YES. 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 Carotid Doppler Study 04/14/19 19:34 IMPRESSION: NO HEMODYNAMICALLY SIGNIFICANT STENOSIS. Abdomen/Pelvis CT 04/15/19 00:00 IMPRESSION: No acute intra-abdominal process is identified. Diverticulosis without acute diverticulitis. The cause of the patient's left lower quadrant pain and dysfunctional uterine bleeding is not identified on this examination. TECHNICAL DOCUMENTATION: Quality ID # 436: Final reports with documentation of one or more dose reduction techniques (e.g., Automated exposure control, adjustment of the mA and/or kV according to patient size, use of iterative reconstruction technique) copyright 2011 [employer]- All Rights Reserved Pelvis Ultrasound 04/15/19 00:00 IMPRESSION: LIMITED STUDY. OVARIES NOT VISUALIZED. THICKENING OF THE ENDOMET RIUM. OTHERWISE NO ABNORMAL FINDINGS. Transvaginal US 04/15/19 00:00 IMPRESSION: LIMITED STUDY. OVARIES NOT VISUALIZED. THICKENING OF THE ENDOMETRIUM. OTHERWISE NO ABNORMAL FINDINGS. Plan Time Spent: Less than 30 Minutes Stroke Is this a Stroke Patient?: Yes Stroke Pt being discharged on Anti-thrombolytic therapy?: Yes Stroke Pt being discharged on Anti-coagulation therapy?: No Reason(s) for not prescribing Anti-coagulation therapy:: Not indicated Stroke Pt being discharged on Statins?: Yes Acute Heart Failure - Is this a Heart Failure Patient?: No
[2019-04-16 12:25] VITALS: BP 133/53
== END 2019-04-16 15:30 | disposition home health service (06) | DRG 65 ==
LOC: ER 12:07 → EH 19:55 → 3W 04-15 00:08
PROVIDERS: ADMIT Internal Medicine; ATTEND Internal Medicine
DX: I63.331 Cerebral infarction due to thrombosis of right posterior cerebral artery (principal); G81.94 Hemiplegia, unspecified affecting left nondominant side; F32.9 Major depressive disorder, single episode, unspecified; E78.5 Hyperlipidemia, unspecified; R20.0 Anesthesia of skin; G43.909 Migraine, unspecified, not intractable, without status migrainosus; F41.1 Generalized anxiety disorder; I10 Essential (primary) hypertension; N95.0 Postmenopausal bleeding; R10.32 Left lower quadrant pain; R29.810 Facial weakness; H57.02 Anisocoria; R93.89 Abnormal findings on diagnostic imaging of other specified body structures; Z87.891 Personal history of nicotine dependence; Z88.6 Allergy status to analgesic agent
CPT/HCPCS: 36415; 70450; 70553; 74177; 76830; 76856; 80053; 80061; 81001; 83735; 84443; 85025; 85610; 85730; 93005; 93010; 93880; 93976; 99285; J1644; J3490